=== PATIENT | male | born 2000 | race Two or more races ===

== ENCOUNTER 2024-12-25 19:27 | Emergency (ER) | payer OTHER ==
[~2024-12-25] VITALS: Ht 170.2 cm; Wt 67.1 kg
[2024-12-25] MEDS ORDERED: VALACYCLOVIR1000 MG PO (23:51)
[2024-12-25] MEDS ORDERED: CEPHALEXIN500 MG PO (23:51)
== END 2024-12-26 02:02 | disposition home or self-care (01) ==
LOC: ER 19:27
DX: B02.8 Zoster with other complications (principal); L08.9 Local infection of the skin and subcutaneous tissue, unspecified